=== PATIENT | female | born 2000 | race Caucasian/White ===

== ENCOUNTER 2019-09-21 16:00 | Outpatient (RCR) | payer OTHER, MEDICAID, SELFPAY ==
--- NOTE | 2019-08-10 17:46 | PEDSTEVAL ---
Thank you for referring this patient to [facility]. Please review, sign, date and return this plan of care [facility]. I agree with and certify that the following plan of care is medically necessary. Referring Physician Date Admitting Provider: Attending Provider: Tona Chung MD Referring Provider: Tona Chung MD * Pediatric Evaluation Start: 08/09/19 15:53 Freq: Status: Active Protocol: Document 08/10/19 16:00 JUSTIN (Rec: 08/09/19 16:02 JUSTIN [id number]) Therapy Assessment Status Assessment Status Assessment Status Evaluation Pt/Family Concern/Reason for Referral . Pt/Family Concern/Reason for Referral Patient's mother is concerned about her fluency of speech and its affect on her ability to communicate. 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 Hearing Hearing Concerns Concern Noted Hearing Test Yes Results of Hearing Test Fail Hearing Comments Dona has a history of otitis media, tubes currently hAS A HOLE IN HER EAR DRUM HEARING EVAL 06/29-MILD LOSS IN BOTH EARS BUT FUNCTIONAL Vision Vision Concerns Concern Noted Vision Concerns Hyperopia (Farsightedness) Glasses Yes Comment Doesn't wear them much Prior Level of Function Prior Level Of Function Language/Communication Verbal Previous Services EI,Outpatient Therapy,School Current Services [facility],School Support Available Local Family Support School Situation Special Education Living Situation Lives with Parents Other Living Situation has one brother Prior Level of Function Comments Dona was recently given an intelligence test. Scores indicated low areas are memory and processing Developmental Milestones Developmental Milestones Reported in Months Walked
--- NOTE | 2019-09-07 10:40 | PCSTNOTE ---
Patient's mother called & cancelled scheduled appointment this date due to conflict. She wishes to reduce to 1x/month because Dona is overwhelmed right now. Scheduled for 09/13.
--- NOTE | 2019-09-14 15:56 | PCSTNOTE ---
Patient's mother called & cancelled scheduled appointment this date due to Dona having strep throat. Wants to resume next week.
--- NOTE | 2019-09-25 11:37 | PCSTNOTE ---
SPEECH/LANGUAGE THERAPY UPDATE Admitting Provider: Attending Provider: Tona Chung MD Patient:Tj Hoffman Date of :2000 Patient's mother has requested that Dona's therapy be reduced to 1-2 times per month due to the fact that Dona is receiving services at school and is somewhat overwhelmed at times. Therapist has agreed to see her at this frequency and resume weekly over the summer. The goals have been partially achieved. Thank you for referring this patient to [facility]. Please review, sign, date and return this discharge summary JAYLON. I have been updated about the patient's current status and I agree with discharge from the above service at this time. Referring Physician Date
--- NOTE | 2019-11-13 09:58 | PCSTNOTE ---
This treatment is being continued on visit number [id number]. Please see documentation on both accounts to view progress. Completed interventions, outcomes, and problems have been marked as Inactive to facilitate the copying of the Care plan routine for recurring accounts.
== END 2019-11-08 23:59 | disposition home or self-care (01) ==
LOC: ANHPEDST 16:00
PROVIDERS: PCP Pediatrics; Referring Provider Pediatrics; Visit Provider Pediatrics
DX: Q90.9 Down syndrome, unspecified (principal)
CPT/HCPCS: 92507; 92521

== ENCOUNTER 2020-02-05 09:00 | Outpatient (RCR) | payer OTHER, MEDICAID, SELFPAY ==
--- NOTE | 2019-11-13 09:59 | PCSTNOTE ---
The treatment documented on this account is a continuation of the treatment documented on visit number [id number]. Please see documentation on both accounts to view progress. The Plan of Care has been transitioned and updated within the new V#. I have addressed and agree with the discipline specific Problems, Interventions, and Goals for the current certification period. Completed interventions, outcomes, and problems have been marked as Inactive to facilitate the copying of the Care plan routine for recurring accounts.
--- NOTE | 2020-01-17 15:58 | PEDREH ---
SPEECH THERAPY PROGRESS REPORT The above patient has completed a total number of 10 treatment sessions since the last progress summary on 09-25-2019. Due to precautions surrounding COVID-19, Dona?s family opted to take a break from therapy during the month of October. She has returned and is currently participating in tele therapy. Since returning, client and family participation have been excellent and attendance has been consistent. 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 Strategies to promote improvements with set goals are reviewed on a regular basis to facilitate carry over and follow through with targeted goals. Patient has demonstrated consistent progress over this past quarter. Accuracies on specific goals can be viewed in the plan of care update and new goals have been set to continue with progress to help patient reach her optimal potential to be able to communicate her daily and medical needs. Dona has worked hard to learn fluency enhancing strategies throughout the past quarter. Continued education on and use of strategies will be implemented in the next quarter. The patient?s mother has also requested that goals be added to work on social communication/pragmatics, as the patient often struggles in social situations and conversation. Recommendations: Thank you for referring Tj Hoffman to [facility].? The patient is scheduled to be seen for therapy?1x/week for 12 weeks.? Please review, sign, date and return this plan of care JAYLON. I agree with and certify that the above recommended change(s) to the plan of care are medically necessary. ? Referring Physician?Date Admitting Provider: Attending Provider: Tona Chung MD Referring Provider:
--- NOTE | 2020-02-14 13:30 | PCSTNOTE ---
This treatment is being continued on visit number [id number]. Please see documentation on both accounts to view progress. Completed interventions, outcomes, and problems have been marked as Inactive to facilitate the copying of the Care plan routine for recurring accounts.
== END 2020-02-13 23:59 | disposition home or self-care (01) ==
LOC: ANHPEDST 09:00
PROVIDERS: PCP Pediatrics; Visit Provider Pediatrics
DX: F80.2 Mixed receptive-expressive language disorder (principal); F80.0 Phonological disorder; F80.81 Childhood onset fluency disorder; F80.82 Social pragmatic communication disorder; Q90.9 Down syndrome, unspecified
CPT/HCPCS: 92507

== ENCOUNTER 2020-05-08 15:45 | Outpatient (RCR) | payer OTHER, MEDICAID, SELFPAY ==
--- NOTE | 2020-02-14 13:28 | PCSTNOTE ---
The treatment documented on this account is a continuation of the treatment documented on visit number [id number]. Please see documentation on both accounts to view progress. The Plan of Care has been transitioned and updated within the new V#. I have addressed and agree with the discipline specific Problems, Interventions, and Goals for the current certification period. Completed interventions, outcomes, and problems have been marked as Inactive to facilitate the copying of the Care plan routine for recurring accounts.
--- NOTE | 2020-03-12 17:33 | PCSTNOTE ---
Patient's mother called & cancelled scheduled appointment this date due to not feeling well. Offered her dates for reschedule, have not heard back yet.
--- NOTE | 2020-03-20 15:57 | PCSTNOTE ---
Therapist called & cancelled scheduled appointment this date due to not having an insurance authorization.
--- NOTE | 2020-03-25 14:15 | PEDREH ---
SPEECH THERAPY PROGRESS REPORT The above patient has completed a total number of 6 treatment sessions since the last progress summary on 01/17/20. Due to precautions surrounding COVID-19, Dona?s family opted to have therapy sessions via tele therapy. Since returning, client and family participation have been excellent and attendance has been consistent. 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 Strategies to promote improvements with set goals are reviewed on a regular basis to facilitate carry over and follow through with targeted goals. Patient has demonstrated consistent progress over this past quarter. Accuracies on specific goals can be viewed in the plan of care update and new goals have been set to continue with progress to help patient reach her optimal potential to be able to communicate her daily and medical needs. Dona has worked hard to learn fluency enhancing strategies throughout the past quarter and is beginning to use them during conversational speech. Continued education on and use of strategies will continue the next quarter with focus being on eliminating closing of eyes and using easy onset. Patient goals were updated to work on social communication/pragmatics, as the patient often struggled in social situations and conversation. Recommendations: Thank you for referring Tj Hoffman to [facility].? The patient is scheduled to be seen for individualized outpatient therapy?1x/week for 12 weeks.? Please review, sign, date and return this plan of care JAYLON. I agree with and certify that the above recommended change(s) to the plan of care are medically necessary. ? Referring Physician?Date Admitting Provider: Attending Provider: Tona Chung MD Referring Provider:
--- NOTE | 2020-04-10 16:37 | PCSTNOTE ---
Patient did not show up for scheduled zoom appointment this date. Contacted her later and she said she forgot. Wants to resume next week.
--- NOTE | 2020-05-15 09:46 | PCSTNOTE ---
This treatment is being continued on visit number [id number]. Please see documentation on both accounts to view progress. Completed interventions, outcomes, and problems have been marked as Inactive to facilitate the copying of the Care plan routine for recurring accounts.
== END 2020-05-14 23:59 | disposition home or self-care (01) ==
LOC: ANHPEDST 15:45
PROVIDERS: PCP Pediatrics; Visit Provider Pediatrics
DX: F80.2 Mixed receptive-expressive language disorder (principal); F80.0 Phonological disorder; F80.81 Childhood onset fluency disorder; F80.82 Social pragmatic communication disorder; Q90.9 Down syndrome, unspecified
CPT/HCPCS: 92507

== ENCOUNTER 2020-08-07 15:45 | Outpatient (RCR) | payer OTHER, MEDICAID, SELFPAY ==
--- NOTE | 2020-05-15 09:45 | PCSTNOTE ---
The treatment documented on this account is a continuation of the treatment documented on visit number [id number]. Please see documentation on both accounts to view progress. The Plan of Care has been transitioned and updated within the new V#. I have addressed and agree with the discipline specific Problems, Interventions, and Goals for the current certification period. Completed interventions, outcomes, and problems have been marked as Inactive to facilitate the copying of the Care plan routine for recurring accounts.
--- NOTE | 2020-05-22 12:55 | PEDREH ---
SPEECH THERAPY PROGRESS REPORT The above patient has completed a total number of 7 treatment sessions since the last progress summary on 03/25/20. Due to precautions surrounding COVID-19, Dona?s family opted to have therapy sessions via tele therapy. Since returning, client and family participation have been excellent and attendance has been consistent. 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 Strategies to promote improvements with set goals are reviewed on a regular basis to facilitate carry over and follow through with targeted goals. Patient has demonstrated consistent progress over this past quarter. Accuracies on specific goals can be viewed in the plan of care update and new goals have been set to continue with progress to help patient reach her optimal potential to be able to communicate her daily and medical needs. Dona has worked hard to learn fluency enhancing strategies throughout the past quarter and is beginning to use them during conversational speech. She continues to close her eyes when she is having difficulty getting words out or thinking. Continued education on and use of strategies will continue the next quarter with focus being on eliminating closing of eyes and using easy onset. Patient goals were updated to work on social communication/pragmatics, as the patient often struggled in social situations and conversation. She does well with conversational skills when prompted. Recommendations: Thank you for referring Tj Hoffman to [facility].? The patient is scheduled to be seen for therapy?1x/week for 12 weeks.? Please review, sign, date and return this plan of care JAYLON. I agree with and certify that the above recommended change(s) to the plan of care are medically necessary. ? Referring Physician?Date Admitting Provider: Attending Provider: Tona Chung MD Referring Provider:
--- NOTE | 2020-05-29 13:58 | PCSTNOTE ---
Patient's mother called & cancelled scheduled appointment this date due to Being very busy. Wanted to resume next week.
--- NOTE | 2020-06-05 16:03 | PCSTNOTE ---
Patient was informed therapist needed to cancel scheduled appointment 06/12 due to being out of town. Her mother wished to cancel amnd resume 06/19.
--- NOTE | 2020-07-02 16:09 | PCSTNOTE ---
Patient's mother called & cancelled scheduled appointments for 07/03 and 07/10 due to the holidays. She wished to resume on 07/17/20.
--- NOTE | 2020-08-14 09:15 | PCSTNOTE ---
This treatment is being continued on visit number [id number]. Please see documentation on both accounts to view progress. Completed interventions, outcomes, and problems have been marked as Inactive to facilitate the copying of the Care plan routine for recurring accounts.
== END 2020-08-13 23:59 | disposition home or self-care (01) ==
LOC: ANHPEDST 15:45
PROVIDERS: PCP Pediatrics; Visit Provider Pediatrics
DX: F80.2 Mixed receptive-expressive language disorder (principal); F80.0 Phonological disorder; F80.81 Childhood onset fluency disorder; F80.82 Social pragmatic communication disorder; Q90.9 Down syndrome, unspecified
CPT/HCPCS: 92507

== ENCOUNTER 2020-11-06 15:45 | Outpatient (RCR) | payer OTHER, MEDICAID, SELFPAY ==
--- NOTE | 2020-08-14 09:16 | PCSTNOTE ---
The treatment documented on this account is a continuation of the treatment documented on visit number [id number]. Please see documentation on both accounts to view progress. The Plan of Care has been transitioned and updated within the new V#. I have addressed and agree with the discipline specific Problems, Interventions, and Goals for the current certification period. Completed interventions, outcomes, and problems have been marked as Inactive to facilitate the copying of the Care plan routine for recurring accounts.
--- NOTE | 2020-08-19 09:58 | PEDREH ---
SPEECH THERAPY PROGRESS REPORT The above patient has completed a total number of 9 treatment sessions since the last progress summary on 05/22/20. Due to precautions surrounding COVID-19, Dona?s family has opted to have therapy sessions via tele therapy. Since resuming, client and family participation have been excellent and attendance has been consistent. 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 Strategies to promote improvements with set goals are reviewed on a regular basis to facilitate carry over and follow through with targeted goals. Patient has demonstrated consistent progress over this past quarter. Accuracies on specific goals can be viewed in the plan of care update and new goals have been set to continue with progress to help patient reach her optimal potential to be able to communicate her daily and medical needs. Dona has worked hard to learn fluency enhancing strategies throughout the past quarter and is using them during conversational speech. She continues to close her eyes, although not as frequently, when she is having difficulty getting words out or thinking. Continued education on and use of strategies will continue next quarter but new goals will be targeted. Patient goals were updated to work on social communication/pragmatics, as the patient often struggled in social situations and conversation. Therapist and parent have seen progress in this area. She does well with conversational skills when prompted. Recommendations: Thank you for referring Tj Hoffman to [facility].? The patient is scheduled to be seen for individualized therapy?1x/week for 12 weeks.? Please review, sign, date and return this plan of care [facility]. I agree with and certify that the above recommended change(s) to the plan of care are medically necessary. ? Referring Physician?Date Admitting Provider: Attending Provider: Tona Chung MD Referring Provider:
--- NOTE | 2020-08-22 11:06 | PCSTNOTE ---
Dona's scheduled appointment for 08/21 was rescheduled for 08/22 due to weather.
--- NOTE | 2020-11-13 16:43 | PCSTNOTE ---
This treatment is being continued on visit number [id number]. Please see documentation on both accounts to view progress. Completed interventions, outcomes, and problems have been marked as Inactive to facilitate the copying of the Care plan routine for recurring accounts.
== END 2020-11-12 23:59 | disposition home or self-care (01) ==
LOC: ANHPEDST 15:45
PROVIDERS: PCP Pediatrics; Visit Provider Pediatrics
DX: F80.2 Mixed receptive-expressive language disorder (principal); F80.0 Phonological disorder; F80.81 Childhood onset fluency disorder; F80.82 Social pragmatic communication disorder; Q90.9 Down syndrome, unspecified
CPT/HCPCS: 92507

== ENCOUNTER 2020-12-25 15:45 | Outpatient (RCR) | payer OTHER, MEDICAID, SELFPAY ==
--- NOTE | 2020-11-13 16:44 | PCSTNOTE ---
The treatment documented on this account is a continuation of the treatment documented on visit number [id number]. Please see documentation on both accounts to view progress. The Plan of Care has been transitioned and updated within the new V#. I have addressed and agree with the discipline specific Problems, Interventions, and Goals for the current certification period. Completed interventions, outcomes, and problems have been marked as Inactive to facilitate the copying of the Care plan routine for recurring accounts.
--- NOTE | 2020-11-18 11:35 | PEDREH ---
I agree with and certify that the above recommended change(s) to the plan of care are medically necessary. ? Referring Physician?Date Admitting Provider: Attending Provider: Tona Chung MD Referring Provider: SPEECH THERAPY PROGRESS REPORT The above patient has completed a total number of +05/22 treatment sessions since the last progress summary on 08/19/19. Due to precautions surrounding COVID-19, Dona?s family has opted to have therapy sessions via tele therapy. Client and family participation have been excellent and attendance has been consistent. 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 Strategies to promote improvements with set goals are reviewed on a regular basis to facilitate carry over and follow through with targeted goals. Patient has demonstrated consistent progress over this past quarter. Accuracies on specific goals can be viewed in the plan of care update and new goals have been set to continue with progress to help patient reach her optimal potential to be able to communicate her daily and medical needs. Dona has worked hard to learn fluency enhancing strategies throughout the past quarter and is using them during conversational speech. She continues to close her eyes, although not as frequently, when she is having difficulty getting words out or thinking. Prolongations and repetitions are noted during each session but severity is inconsistent. Continued education on and use of strategies will continue next quarter. Patient goals were updated to work on articulation as she reads. Therapist and parent have seen progress with grammatical skills and formation of sentences. She continues to be inconsistent with answering questions. Recommendations: Thank you for referring Tj Hoffman to [facility].? The patient is scheduled to be seen for individualized therapy?1x/week for 12 weeks.? Please review, sign, date and return this plan of care [facility].
--- NOTE | 2021-01-01 11:50 | PCSTNOTE ---
Patient's called & cancelled scheduled appointment this date due to a conflict. She wished to resume next week.
--- NOTE | 2021-01-07 11:04 | PCSTNOTE ---
Admitting Provider: Attending Provider: Tona Chung MD DISCHARGE NOTE Patient:Tj Hoffman Date of :2000 Patient has not returned for any further treatments since 12/25/2020, therefore she will be discharged at this time. Her mother is seeking physical therapy at a facility closer to their home and is wishing to switch speech therapy to same facility. Patient?s last progress note was written on 11/18/20. The goals have been partially met. Dona has made progress with fluency skills, utilizing her strategies when needed. She is more successful (fluent) when she speaks slowly. Her speech intelligibility has improved and is better when she moves articulators more. She continues to be inconsistent when answering questions based on difficulty of question. Thank you for referring this patient to [facility]. She ands her family have been a pleasure to work with. Please review, sign, date and return this discharge summary JAYLON. I have been updated about the patient's current status and I agree with discharge from the above service at this time. Referring Physician Date
== END 2021-01-07 13:46 | disposition home or self-care (01) ==
LOC: ANHPEDST 15:45
PROVIDERS: PCP Pediatrics; Visit Provider Pediatrics
DX: F80.2 Mixed receptive-expressive language disorder (principal); F80.0 Phonological disorder; F80.81 Childhood onset fluency disorder; F80.82 Social pragmatic communication disorder; Q90.9 Down syndrome, unspecified
CPT/HCPCS: 92507